=== PATIENT | female | born 1945 | race Caucasian/White ===

== ENCOUNTER 2017-06-17 08:57 | Inpatient (IN) ==
--- NOTE | 2017-06-17 08:14 | Discharge Summary ---
<Guerline Mejia - Last Filed: 06/17/17 08:34> Date of Encounter: 06/17/17 - Discharge Diagnosis (1) Loosening of knee joint prosthesis Priority: Primary Status: Acute Qualifiers: Encounter type: initial encounter Qualified Code(s): T84.038A - Mechanical loosening of other internal prosthetic joint, initial encounter; Z96.659 - Presence of unspecified artificial knee joint (2) Status post revision of total replacement of left knee Priority: Primary Status: Acute (3) Chronic pain Priority: Secondary Status: Chronic Comments: Holding Chronic pain medication, Holding [place] 5/325 TID Qualifiers: Chronic pain type: other chronic pain Qualified Code(s): G89.29 - Other chronic pain (4) DMII (diabetes mellitus, type 2) Priority: Secondary Status: Chronic Qualifiers: Diabetes mellitus complication status: without complication Diabetes mellitus 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 insulin 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 Qualified Code(s): E11.9 - Type 2 diabetes mellitus without complications (5) HTN (hypertension) Priority: Secondary Status: Chronic Qualifiers: Hypertension type: essential hypertension Qualified Code(s): I10 - Essential (primary) hypertension (6) Obesity Priority: Secondary Status: Chronic Qualifiers: Obesity type: due to excess calories Obesity classification: unspecified obesity classification Serious obesity comorbidity presence: without serious comorbidity Qualified Code(s): E66.09 - Other obesity due to excess calories; Z68.41 - Body mass index (BMI) 40.0-44.9, adult - Discharge Medications Home Medications: Aspirin Enteric Coated [Aspirin EC] 325 mg PO DAILY #21 tablet.dr 06/17/17 [Rx] Glimepiride [Amaryl] 4 mg PO DAILY 06/17/17 [History] Losartan/Hydrochlorothiazide [Hyzaar 100-25 Tablet] 1 tab PO DAILY 06/17/17 [ History] Meloxicam 15 mg PO DAILY 06/17/17 [History] Mycophenolate Mofetil [Cellcept] 1,000 mg PO QAM 06/17/17 [History] Mycophenolate Mofetil [Cellcept] 500 mg PO QPM 06/17/17 [History] Omeprazole 20 mg PO DAILY 06/17/17 [History] OxyCODONE Immed Rel [Roxicodone 5 MG] 5 mg PO Q6HR PRN #28 tablet 06/17/17 [Rx] Potassium Chloride [Klor-Con Sprinkle] 10 meq PO TID 06/17/17 [History] clonazePAM [Clonazepam] 0.5 mg PO BID #6 tab.rapdis 06/17/17 [Rx] clonazePAM [Klonopin] 0.5 mg PO BID PRN 06/17/17 [History] metFORMIN [Glucophage] 500 mg PO BID 06/17/17 [History] Allergies/Adverse Reactions: 3 Allergy/AdvReac Type Severity Reaction Status Date / Time codeine Allergy See Verified 06/17/17 10:11 Comments tetanus and diphtheria Allergy See Verified 06/17/17 10:11 toxoids Comments Primary care physician: Isidoro Claudio MD - Patient Status Disposition: Transfer Inpatient Rehab Fac Condition: Good - Discharge Instructions Follow Up With: Isidoro Claudio MD [Primary Care Provider] - - Hospital Course Hospital course: Ms. Garcia is a 71 year old female - Time Spent with Patient Total time spent providing and/or coordinating discharge services: <Koko Simmons - Last Filed: 06/19/17 12:48> Date of Encounter: 06/19/17 Time of Encounter: 12:47 - Discharge Diagnosis (1) Morbid obesity with BMI of 40.0-44.9, adult Priority: Secondary Status: Chronic (2) Loosening of knee joint prosthesis Priority: Primary Status: Chronic Qualifiers: Encounter type: subsequent encounter Qualified Code(s): T84.038D - Mechanical loosening of other internal prosthetic joint, subsequent encounter; Z96.659 - Presence of unspecified artificial knee joint (3) DMII (diabetes mellitus, type 2) Priority: Secondary Status: Chronic Qualifiers: Diabetes mellitus complication status: without complication Diabetes mellitus mcc insulin 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 Qualified Code(s): E11.9 - Type 2 diabetes mellitus without complications (4) HTN (hypertension) Priority: Secondary Status: Chronic Qualifiers: Hypertension type: essential hypertension Qualified Code(s): I10 - Essential (primary) hypertension (5) Autoimmune disease Priority: Secondary Status: Chronic (6) Chronic pain Priority: Secondary Status: Chronic Qualifiers: Chronic pain type: other chronic pain Qualified Code(s): G89.29 - Other chronic pain (7) Status post revision of total replacement of left knee Priority: Primary Status: Acute (8) Obesity Priority: Secondary Status: Chronic Qualifiers: Obesity type: due to excess calories Obesity classification: adult class 3 (BMI >= 40) Serious obesity comorbidity presence: without serious comorbidity Body mass index: BMI 40.0-44.9 Qualified Code(s): E66.09 - Other obesity due to excess calories; Z68.41 - Body mass index (BMI) 40.0-44.9, adult (9) Acute blood loss anemia Priority: Primary Status: Acute Primary care physician: Isidoro Claudio MD - Patient Status Functional capacity at discharge: uses cane/walker Overall status at discharge: patient is progressing back to baseline - Hospital Course Hospital course: Ms. Garcia is a 71 year old female Status post revision left total knee The patient had an uneventful postoperative course. They received antibiotics and physical therapy and were discharged in stable condition. There will follow -up in the office in 2 weeks. Hemoglobin 9.6 on discharge - Time Spent with Patient Total time spent providing and/or coordinating discharge services:
--- NOTE | 2017-06-17 09:29 | History & Physical Report ---
Date of Encounter: 06/17/17 Time of Encounter: 09:29 24 Hour HP Update - Instructions Instructions: If the History and Physical is less than 30 days old and was completed prior to A.M. admission and or procedure and has NOT been updated on calendar day of procedure please complete this update prior to performing procedure. - Update Patient reports changes in Medical Condition: No Changes in examination, assessment, or condition: No Changes in Medication: No Preop tests/diagnostics Reviewed: Yes Surgery Remains Indicated: Yes Consent for Planned Operative Procedure(s) Verified: Yes - Pre-Operative Checklist Preoperative Checklist Indicated: No Prophylactic Antibiotic Ordered: Yes Is VTE Prophylaxis Indicated?: Yes
[2017-06-17] MEDS ORDERED: Vancomycin 1,500 MG in D5% in Water 250 ML IVPB ONE (09:32)
[2017-06-17] MEDS ORDERED: Ringers Solution, Lactated 1,000 ML IVC SCH ×2 (09:45→14:54)
[2017-06-17] MEDS ORDERED: Famotidine 20 MG/2 ML VIAL IVP ONE (10:00)
[2017-06-17] MEDS ORDERED: Gabapentin 300 MG CAPSULE PO ONE (10:00)
[2017-06-17] MEDS ORDERED: *HR* Midazolam HCl 2 MG/2 ML VIAL ONE (10:25)
[2017-06-17] MEDS ORDERED: *HR* Propofol 200 MG/20 ML VIAL IVP ONE ×2 (10:25→10:40)
[2017-06-17] MEDS ORDERED: *HR* FentaNYL (PF) 100 MCG/2 ML VIAL ONE (10:25)
[2017-06-17] MEDS ORDERED: Lidocaine -MPF 2% 2 ML VIAL ONE (10:25)
[2017-06-17] MEDS ORDERED: *HR* Meperidine 25 MG/ML SYRINGE IVP PRN (10:29)
[2017-06-17] MEDS ORDERED: Ondansetron 4 MG/2 ML VIAL IVP ONE (10:29)
[2017-06-17] MEDS ORDERED: *HR* Labetalol 20 MG/4 ML SYRINGE IVP PRN (10:29)
--- NOTE | 2017-06-17 10:30 | Anesthesia Evaluation PreOp ---
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 06/17/17 [Rx] OxyCODONE Immed Rel [Roxicodone 5 MG] 5 mg PO Q6HR PRN #28 tablet 06/17/17 [Rx] clonazePAM [Clonazepam] 0.5 mg PO BID #6 tab.rapdis 06/17/17 [Rx] 3 Allergy/AdvReac Type Severity Reaction Status Date / Time codeine Allergy See Verified 06/17/17 10:11 Comments tetanus and diphtheria Allergy See Verified 06/17/17 10:11 toxoids Comments - Meds/Allergy Pre-op Review Medications Reviewed: Yes Allergies Reviewed: Yes Beta Blockers on Current Med List: No Anesthesia Results - Labs Laboratory Tests 06/04/17 06/04/17 11:28 11:28 Hgb 12.1 Hct 38.4 Plt Count 260 Sodium 140 Potassium 3.8 BUN 10 Creatinine 0.70 - Imaging EKG: report reviewed (SR) Additional studies: Stress Test negative, LVEF 55% mild aortic regurge Anesthesia Exam O2 Sat Height 1.52 m Height 1.52 m Height 1.52 m Weight 104.326 kg Weight 104.326 kg Weight 104.326 kg O2 Sat by Pulse Oximetry 96 O2 Sat by Pulse Oximetry 96 Vital Signs Temp Pulse Resp BP Pulse Ox 97.8 F 75 18 157/80 96 06/17/17 09:33 06/17/17 09:33 06/17/17 09:33 06/17/17 09:33 06/17/17 09:33 Height: 5'0 Weight: 230 lbs NPO (# of Hours): MN Pain Scale: 0 - HEENT Pupil (Motor): Pupils equal, EOMI Mallampati: III Teeth: Edentulous Oral Opening: Less than or equal to 3 - 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 LOC: Oriented 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 Motor: Normal RUE, Normal LUE, Normal RLE, Normal LLE, Normal Face 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 Sensory: Normal: RUE, LUE, RLE, Face, Deficit: LLE (Paresthesia Rt knee) - Cardiac Rhythm: Regular Murmur: None JVD: No Carotid Bruit: No - Pulmonary Breath Sounds: bilateral Clear Respiratory Effort: Symmetrical Anesthesia Assess/Plan ASA Score: 3 (MO HTN DM) Modified [place] Scale for Level of Consciousness: Cooperative, oriented, and tranquil Anesthetic Plan: General, Regional Monitoring Plan: Standard Monitors Recovery Plan: PACU (Discussed GA and RA, agrees to proceed)
[2017-06-17] MEDS ORDERED: ROPIVACAINE HCL/PF 0.5% 30 ML VIAL ONE (11:34)
[2017-06-17] MEDS ORDERED: Tetracaine/PF 20 MG/2 ML AMPUL ONE (11:34)
[2017-06-17] MEDS ORDERED: Bupivacaine/Clonidine Syringe 1 EACH SYRINGE ONE (11:35)
--- NOTE | 2017-06-17 12:12 | Anesthesia Procedures ---
Date of Encounter: 06/17/17 Time of Encounter: 10:25 Procedures: Anesthesia - Nerve Block Procedure Date: 06/17/17 Time: 11:50 Pre-op Diagnosis: Loosening Aseptic Left Knee Arthroplasty Surgical Procedure: REvision TKA Checklist: Correct Patient Identifier Correct side: Left Blood Thinner: No Monitor Applied: EKG, BP, Pulse Oximetry Supplemental Oxygen via Nasal Cannula (L/min): 2 Sedation: Versed (mg): 2 Sedation: Fentanyl (mcg): 100 Indication: Post Op Analgesia Pre-op Neuro Deficits: Yes (Left Knee) Block Type: Femoral, Other (IPACK) Catheter placed: No Depth at skin (cm): 4 Sterile Technique: Yes Ultrasound used: Yes Anatomy identified: Yes Visual spread of Local: Yes Neuro Stimulation: Yes Nerve Stimulator Range: >0.4 - 0.6 mA Blood on Needle Aspiration: No Smooth Injection of Local: Yes Pain with Injection of Local: No Prep: Chlorhexadine Needle: 22 x 50 mm Stimuplex Local: 0.25% Bupivicaine w/Clonidine 20 mcg/cc, Tetracaine, Ropivacaine (0.5%) Volume (cc): 30 Number of Attempts: 1 Complications: None/effective block Vitals: Vital Signs/O2 Sat/Glucose, Most Current Temp Pulse Resp BP Pulse Ox 06/17/17 11:56 69 16 165/95 99 06/17/17 11:25 78 174/110 98 06/17/17 09:56 97.8 F 75 18 157/80 96 06/17/17 09:33 97.8 F 75 18 157/80 96
[2017-06-17] MEDS ORDERED: Dexamethasone 4 MG/ML VIAL ONE (12:34)
[2017-06-17] MEDS ORDERED: *HR* Succinylcholine 200 MG/10 ML VIAL IVP ONE (12:34)
[2017-06-17] MEDS ORDERED: Ondansetron 4 MG/2 ML VIAL ONE (12:34)
[2017-06-17] MEDS ORDERED: *HR* HYDROmorphone 2 MG/ML SYRINGE ONE (12:41)
[2017-06-17] MEDS ORDERED: Lidocaine -MPF 4% 5 ML AMPUL ONE (12:42)
--- NOTE | 2017-06-17 13:05 | Orthopedic Operative Note ---
Date of procedure: 06/17/17 Pre-op diagnosis: Aseptic loosening left total knee Post-op diagnosis: same Procedure: Procedure: Left revision total knee Estimated blood loss: 400 Hardware: Metal and polyethylene replacement. Biomet SSK femur: 60, 16 x 80 stem Tibia: 63, 10 x 40 stem Constrained Darlyn: 16 constrained Darlyn, 37 patella Exam Under anesthesia: Significant mid flexion varus valgus instability Procedural Notes: Gross loosening femoral component until component. Operative procedure: The patient was brought to the operating room and placed on the operating room table. After general anesthesia was administered the operative knee was examined. Findings were noted in the exam under anesthesia. The operative extremity was prepped and draped in sterile surgical fashion. The patient received IV antibiotics prior to skin incision. A standard midline incision was made centered over the patella through the old incision. The incision was made through the skin and subcutaneous tissue. A medial parapatellar tendon approach was performed. Care was taken to preserve tissue along the medial aspect of the patella. And to protect the patella tendon. The deep MCL was released off the medial tibia. The infra patella fat pad was excised. Fluid was encountered this was normal joint fluid, Cultures were obtained and gram . The knee was brought into flexion the poly-was removed. The interface between the patient's femoral component and distal femur were disrupted with a osteotome and oscillating saw. Femoral component was removed removed without significant bone loss. Femoral component was grossly loose. Attention was then turned to the tibial component. The same technique was used to remove the tibial component by disrupting the interface between the patient's tibial component and the patients proximal tibia. The tibial component was loose, was removed without significant bone loss. The tibia was sized to a 60 was reamed up to a 16 x 80 Trial had good fit and fixation. The femur was sized to a 63, was reamed up to a 10 x 40 The finishing guide was seated and the box cut was made. The trial had good fit and fixation. Both trial components were seated and the 16 constrained Darlyn was seated and secured. The knee had full flexion and full extension with no instability. Patella was an inset patella was everted and cut below the implant. Patella sized to a 37 guide was seated locals drilled. Patella trial had excellent patella tracking. The trial components were removed. The knee sat for 2 minutes with a Betadine saline solution. It was irrigated out with 2 L of pulse irrigation. The components were assembled on the back table, the tibia cemented first followed by the femur. The 16 constrained liner was seated and secure. The knee was brought to full extension while the cement hardened. The patella was cemented and held in place with patellar holding clamp. After the cement hardened the knee was irrigated out again. The knee was closed by the PA. The extensor mechanism was closed with a running #2 Fiberwire suture and a running #2 PDS suture. The deep tissue was irrigated and closed deep with #1 PDS suture superficially with 0 PDS suture. The skin was closed with skin kimberley. The patient was placed in a sterile dressing and postoperative brace. They were extubated and transferred to recovery room in stable condition. Anesthesia: JACQUELINE Surgeon: Koko Simmons Professional Bondsman: Kathy Stanley Condition: stable Disposition: PACU
[2017-06-17] MEDS: *HR* HYDROmorphone (PF) 1 MG/ML SYRINGE IVP PRN ×2 (14:03→14:08)
[2017-06-17] MEDS ORDERED: *HR* HYDROmorphone (PF) 1 MG/ML SYRINGE ONE (14:03)
[2017-06-17 14:09] LABS: Hematocrit 34.5 % (35.3-44.9); Hemoglobin 11.3 g/dL (11.5-15.4)
--- NOTE | 2017-06-17 14:50 | Anesthesia Evaluation Post Op ---
Date of Encounter: 06/17/17 Time of Encounter: 15:00 - Vital Signs Vital Signs: Vital Signs/O2 Sat/Glucose, Most Current Temp Pulse Resp BP Pulse Ox 06/17/17 14:38 97.2 F L 61 14 124/67 97 06/17/17 14:28 76 16 123/66 94 06/17/17 14:18 97.2 F L 79 16 121/68 96 06/17/17 14:08 69 14 120/78 94 06/17/17 13:58 66 16 124/65 100 06/17/17 13:48 97.4 F L 75 12 135/70 100 06/17/17 11:56 69 16 165/95 99 06/17/17 11:25 78 174/110 98 - Lungs Lungs: Clear Ascult./Percussion - Airway Airway: Non-obstructed - Cardiovascular Regular Rate - Mental Status Mental Status: Alert & Oriented, Answers Appropriately - Pain Pain Scale: 2 - Nausea Vomiting Nausea Vomiting: Not Present - Hydration Hydration: Ice chips - Discharge PostOp Status: Transfer Patient to floor
[2017-06-17] MEDS ORDERED: Ondansetron 4 MG/2 ML VIAL IVP PRN (14:54)
[2017-06-17] MEDS ORDERED: *HR* Dextrose 50 % in Water (Syg) 50 ML SYRINGE IVP PRN (14:54)
[2017-06-17] MEDS ORDERED: D5% in Water 1,000 ML IVC PRN (14:54)
[2017-06-17] MEDS ORDERED: *HR* OxyCODONE Immed Rel 5 MG TABLET PO PRN (14:54)
[2017-06-17] MEDS ORDERED: *HR* HYDROmorphone (PF) 1 MG/ML SYRINGE IVP PRN (14:54)
[2017-06-17] MEDS ORDERED: Dextrose Gel 15 GM PO PRN ×2 (14:54)
[2017-06-17] MEDS ORDERED: Naloxone 0.4 MG/ML INJ IVP PRN (14:54)
--- NOTE | 2017-06-17 14:54 | Physician Discharge Referral ---
<MejiaankitaLisa rhodesGuerline L - Last Filed: 06/17/17 14:52> ExtendedCare Referral Info Transfer To: [facility] Provider in Charge: Provider in Charge after Transfer: PCP Institutional Level of Care: Skilled - Diagnosis (1) Loosening of knee joint prosthesis Priority: Primary Status: Chronic (2) Status post revision of total replacement of left knee Priority: Primary Status: Acute (3) Chronic pain Priority: Secondary Status: Chronic (4) DMII (diabetes mellitus, type 2) Priority: Secondary Status: Chronic (5) HTN (hypertension) Priority: Secondary Status: Chronic (6) Obesity Status: Chronic Expected Duration of Placement: < 30 days Prognosis: Good Aware of Diagnosis: Patient Aware of Prognosis: Patient - Transfer Medications Home Medications: Aspirin Enteric Coated [Aspirin EC] 325 mg PO DAILY #21 tablet. 06/17/17 [Rx] Glimepiride [Amaryl] 4 mg PO DAILY 06/17/17 [History] Losartan/Hydrochlorothiazide [Hyzaar 100-25 Tablet] 1 tab PO DAILY 06/17/17 [ History] Meloxicam 15 mg PO DAILY 06/17/17 [History] Mycophenolate Mofetil [Cellcept] 1,000 mg PO QAM 06/17/17 [History] Mycophenolate Mofetil [Cellcept] 500 mg PO QPM 06/17/17 [History] Omeprazole 20 mg PO DAILY 06/17/17 [History] OxyCODONE Immed Rel [Roxicodone 5 MG] 5 mg PO Q6HR PRN #28 tablet 06/17/17 [Rx] Potassium Chloride [Klor-Con Sprinkle] 10 meq PO TID 06/17/17 [History] clonazePAM [Clonazepam] 0.5 mg PO BID #6 tab.rapdis 06/17/17 [Rx] clonazePAM [Klonopin] 0.5 mg PO BID PRN 06/17/17 [History] metFORMIN [Glucophage] 500 mg PO BID 06/17/17 [History] Allergies/Adverse Reactions: 3 Allergy/AdvReac Type Severity Reaction Status Date / Time codeine Allergy See Verified 06/17/17 10:11 Comments tetanus and diphtheria Allergy See Verified 06/17/17 10:11 toxoids Comments - Respiratory Orders None Smoking Cessation: Smoking cessation has been advised. For more information, call the [place] Tobacco Quit Line at 7-061-AUXX-NOW. - Ancillary Orders May use pressure relief devices daily prn, May go on OSVALDO w/family/respon alliance party w /meds at nurse discretion PRN, May consult with Dentist, Sol[place], Email Developer PRN - Mobility Orders Chair, Ambulate - Rehabiliation Orders Rehab Potential: Good Rehab Orders: ROM Exercises, Evaluation for Physical Therapy, Evaluation for Occupational Therapy Other: Opsite dressing, leave intact until first post-operative visit. If dressing becomes >50% saturated, contact office, remove dressing and place appropriate dressing in its place. Do not allow for dressing to get wet. [place] in place. Plan to be removed at POW#2 PT: Precautions x 6 weeks Apply cold therapy wrap 3-6x/day for 20 minutes at a time. Encourage ambulation throughout the day and incentive spirometer 10x/hour. Elevate affected extremity above heart as tolerated. Brace: Immobilizer at night x 2 weeks. - Treatments Skin tear care topically daily PRN per policy CERTIFICATION: I certify that the transfer of the above named patient to an Extended Care Facility is necessary for the continuing treatment of the diagnosis listed. The above information is true and accurate reflection of patient's current condition. Confidential - Redisclosure prohibited without a patient's written consent. <Koko Simmons - Last Filed: 06/19/17 12:49> - Diagnosis (1) Morbid obesity with BMI of 40.0-44.9, adult Status: Chronic (2) Loosening of knee joint prosthesis Status: Chronic (3) DMII (diabetes mellitus, type 2) Status: Chronic (4) HTN (hypertension) Status: Chronic (5) Autoimmune disease Status: Chronic (6) Chronic pain Status: Chronic (7) Status post revision of total replacement of left knee Status: Acute (8) Obesity Status: Chronic (9) Acute blood loss anemia Status: Acute - Respiratory Orders Smoking Cessation: Smoking cessation has been advised. For more information, call the [place] Tobacco Quit Line at 4-247-GCUI-NOW. CERTIFICATION: I certify that the transfer of the above named patient to an Extended Care Facility is necessary for the continuing treatment of the diagnosis listed. The above information is true and accurate reflection of patient's current condition. Confidential - Redisclosure prohibited without a patient's written consent.
[2017-06-17] MEDS: Insulin LISPRO 300 UNITS/3 ML VIAL SQ SCH ×3 (15:52→21:52)
[2017-06-17] MEDS: *HR* OxyCODONE Immed Rel 5 MG TABLET PO PRN ×2 (15:58→22:28)
[2017-06-17] MEDS: ceFAZolin 2,000 MG in D5% in Water 100 ML IVPB SCH ×2 (15:58→23:04)
[2017-06-17] MEDS: *HR* Enoxaparin 30 MG/0.3 ML SYRINGE SQ SCH (16:44)
[2017-06-17] MEDS ORDERED: *HR* Enoxaparin 30 MG/0.3 ML SYRINGE SQ SCH (18:00)
[2017-06-17] MEDS: *HR* Metformin 500 MG TABLET PO SCH (20:14)
[2017-06-17] MEDS ORDERED: Sennosides 8.6 MG TABLET PO PRN (21:00)
[2017-06-17] MEDS ORDERED: Temazepam 15 MG CAPSULE PO PRN (21:00)
[2017-06-17] MEDS ORDERED: MOM Conc 10 ML UD.LIQ PO PRN (21:00)
[2017-06-17] MEDS ORDERED: clonazePAM 0.5 MG TABLET PO PRN (21:00)
[2017-06-18] MEDS: *HR* Enoxaparin 30 MG/0.3 ML SYRINGE SQ SCH ×2 (05:07→17:43)
[2017-06-18] MEDS: *HR* OxyCODONE Immed Rel 5 MG TABLET PO PRN ×5 (05:07→23:06)
--- NOTE | 2017-06-18 06:41 | Orthopedics Progress Note ---
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 insulin use status Qualified Code(s): E11.9 - Type 2 diabetes mellitus without complications (4) HTN (hypertension) Current Visit: No Status: Chronic Qualifiers: Hypertension type: essential hypertension Qualified Code(s): I10 - Essential (primary) hypertension (5) Autoimmune disease Current Visit: No Status: Chronic (6) Chronic pain Current Visit: No Status: Chronic Qualifiers: Chronic pain type: other chronic pain Qualified Code(s): G89.29 - Other chronic pain (7) Status post revision of total replacement of left knee Current Visit: No Status: Acute (8) Obesity Current Visit: No Status: Chronic Qualifiers: Obesity type: due to excess calories Obesity classification: adult class 3 (BMI >= 40) Serious obesity comorbidity presence: without serious comorbidity Body mass index: BMI 40.0-44.9 Qualified Code(s): E66.09 - Other obesity due to excess calories; Z68.41 - Body mass index (BMI) 40.0-44.9, adult Subjective Interval history: Patient was seen this morning doing well without complaints. Afebrile vital signs stable. Operative extremity: Neurovascularly intact Dressing clean dry and intact Calves nontender Assessment and plan: Continue with postoperative care Hematocrit 35 Objective Vital signs: Vital Signs Temp Pulse Resp BP Pulse Ox 06/17/17 22:21 97.7 F 63 16 133/80 95 06/17/17 17:49 97.4 F L 67 18 115/57 93 06/17/17 16:50 97.4 F L 57 13 128/74 95 06/17/17 15:50 97.4 F L 65 14 114/69 94 06/17/17 15:20 97.4 F L 68 14 97/62 96 09/25/17 14:49 97.6 F 80 18 101/62 93 06/17/17 14:38 97.2 F L 61 14 124/67 97 06/17/17 14:28 76 16 123/66 94 06/17/17 14:18 97.2 F L 79 16 121/68 96 06/17/17 14:08 69 14 120/78 94 06/17/17 13:58 66 16 124/65 100 06/17/17 13:48 97.4 F L 75 12 135/70 100 06/17/17 11:56 69 16 165/95 99 06/17/17 11:25 78 174/110 98 06/17/17 09:56 97.8 F 75 18 157/80 96 06/17/17 09:33 97.8 F 75 18 157/80 96 Intake and Output 06/17/17 06/17/17 06/18/17 15:59 23:59 07:59 Intake Total 200 / 200 100 / 100 Output Total 400 / 400 300 / 300 Balance -400 / -400 -100 / -100 100 / 100 Intake: IV Fluids 100 / 100 100 / 100 Ancef 2,000 MG In Dextrose 5% 100 / 100 100 / 100 100 ML @ 200 mls/hr IVPB Q8HR [facility] Rx#:[id number] Oral 100 / 100 Output: Urine 300 / 300 Estimated Blood Loss 400 / 400 Other: # Voids 1 Weight 104.326 kg Blood Glucose* 192 253 - Labs CBC & BMP: 06/17/17 14:00 Labs: Abnormal lab results Hgb 11.3 g/dL (11.5-15.4) L 06/17/17 14:00 Hct 34.5 % (35.3-44.9) L 06/17/17 14:00 POC Glucose 253 (58-89) H 06/17/17 19:48 - VTE Documentation of Mechanical Device: Venous foot pump, device Consult Discharge Plan - Plan Referrals: Isidoro Claudio MD [Primary Care Provider] -
[2017-06-18 06:49] LABS: Hemoglobin 9.8 g/dL (11.5-15.4)
[2017-06-18 06:53] LABS: BUN/Creatinine Ratio 16 (6-26); Blood Urea Nitrogen 12 mg/dL (7-20); Calcium 8.7 mg/dL (8.6-10.8); Carbon Dioxide 27 mEq/L (19-29); Chloride 103 mEq/L (98-109); Glucose 224 mg/dL (70-99); Osmolality,Calculated 293 (280-300); Potassium 4.1 mEq/L (3.5-4.5); Sodium 138 mEq/L (136-145); eGFR For African Americans > 60 (> 60); eGFR For Non-African Americans > 60 (> 60)
[2017-06-18] MEDS: *HR* Metformin 500 MG TABLET PO SCH ×2 (09:25→21:01)
[2017-06-18] MEDS: *HR* Glimepiride 4 MG TABLET PO SCH (09:26)
[2017-06-18] MEDS: Losartan/HCTZ 50-12.5 TABLET PO SCH (09:26)
[2017-06-18] MEDS: Insulin LISPRO 300 UNITS/3 ML VIAL SQ SCH ×4 (09:27→21:07)
--- NOTE | 2017-06-18 12:06 | Event Note ---
Date of Encounter: 06/18/17 Time of Encounter: 12:03 PCR - Left TKR -Revision 06/18/17 - +MSSA swab Cultures: pending, Gram stain negative POD#.1 Patient seen at bedside. Comorbidities: DMII, HTN, Obesity, Chronic pain Labs: 06/18 - h/h - Type and cross, holding 2 units in case drops Pain control: Chronic pain - [place] 5/325 QID - Holding Clonazapam .5 BID - printed for ECF RX Participating in PT. All questions and concerns addressed. Educated on use of incentive spirometer, ambulation, and hydration. Patient educated on post-operative restrictions and care. Addressed: see above D/C plan:. ECF
[2017-06-19] MEDS: *HR* OxyCODONE Immed Rel 5 MG TABLET PO PRN ×4 (03:36→15:32)
[2017-06-19 06:12] LABS: Hematocrit 29.5 % (35.3-44.9); Hemoglobin 9.6 g/dL (11.5-15.4)
[2017-06-19 06:24] LABS: BUN/Creatinine Ratio 17 (6-26); Blood Urea Nitrogen 11 mg/dL (7-20); Carbon Dioxide 31 mEq/L (19-29); Chloride 103 mEq/L (98-109); Glucose 156 mg/dL (70-99); Osmolality,Calculated 295 (280-300); Potassium 3.6 mEq/L (3.5-4.5); Sodium 141 mEq/L (136-145); eGFR For African Americans > 60 (> 60); eGFR For Non-African Americans > 60 (> 60)
[2017-06-19] MEDS: *HR* Enoxaparin 30 MG/0.3 ML SYRINGE SQ SCH (06:31)
[2017-06-19] MEDS: *HR* Metformin 500 MG TABLET PO SCH (07:44)
[2017-06-19] MEDS: Losartan/HCTZ 50-12.5 TABLET PO SCH (07:45)
[2017-06-19] MEDS: *HR* Glimepiride 4 MG TABLET PO SCH (07:45)
[2017-06-19] MEDS: Insulin LISPRO 300 UNITS/3 ML VIAL SQ SCH ×2 (08:06→11:49)
[2017-06-19 11:25] VITALS: BP 107/65
--- NOTE | 2017-06-19 12:49 | Orthopedics Progress Note ---
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: unspecified longterm insulin use status Qualified Code(s): E11.9 - Type 2 diabetes mellitus without complications (4) HTN (hypertension) Current Visit: No Status: Chronic Qualifiers: Hypertension type: essential hypertension Qualified Code(s): I10 - Essential (primary) hypertension (5) Autoimmune disease Current Visit: No Status: Chronic (6) Chronic pain Current Visit: No Status: Chronic Qualifiers: Chronic pain type: other chronic pain Qualified Code(s): G89.29 - Other chronic pain (7) Status post revision of total replacement of left knee Current Visit: No Status: Acute (8) Obesity Current Visit: No Status: Chronic Qualifiers: Obesity type: due to excess calories Obesity classification: adult class 3 (BMI >= 40) Serious obesity comorbidity presence: without serious comorbidity Body mass index: BMI 40.0-44.9 Qualified Code(s): E66.09 - Other obesity due to excess calories; Z68.41 - Body mass index (BMI) 40.0-44.9, adult (9) Acute blood loss anemia Current Visit: Yes Status: Acute Subjective Interval history: Patient was seen this morning doing well without complaints. Afebrile vital signs stable. Operative extremity: Neurovascularly intact Dressing clean dry and intact Calves nontender Assessment and plan: Continue with postoperative care hemoGlobin 9.6 discharged today Objective Vital signs: Vital Signs Temp Pulse Resp BP Pulse Ox 06/19/17 11:45 88 20 107/65 98 06/19/17 11:22 98.4 F 88 20 107/65 98 06/19/17 07:10 98.6 F 100 18 131/72 99 06/19/17 04:07 98.5 F 84 18 125/67 98 06/18/17 23:21 97.9 F 90 18 124/65 99 06/18/17 21:08 97.9 F 79 18 125/71 98 06/18/17 15:24 97.4 F L 76 16 133/73 96 Intake and Output 06/18/17 06/19/17 06/19/17 23:59 07:59 15:59 Intake Total 200 / 200 100 / 100 100 / 100 Output Total 0 / 0 550 / 550 Balance 200 / 200 -450 / -450 100 / 100 Intake: Oral 200 / 200 100 / 100 100 / 100 Output: Urine 0 / 0 550 / 550 Other: Meal Breakfast Percent of Meal Consumed 25% # Voids 1 Weight 106.4 kg Blood Glucose* 180 164 189 Patient Weight 06/19/17 23:59 Weight 106.4 kg - Labs CBC & BMP: 06/19/17 05:26 06/19/17 05:26 Labs: Abnormal lab results Hgb 9.6 g/dL (11.5-15.4) L 06/19/17 05:26 Hct 29.5 % (35.3-44.9) L 06/19/17 05:26 Carbon Dioxide 31 mEq/L (19-29) H 06/19/17 05:26 Glucose 156 mg/dL (70-99) H 06/19/17 05:26 POC Glucose 180 (58-89) H 06/18/17 20:55 - VTE Documentation of Mechanical Device: Venous foot pump, device Consult Discharge Plan - Plan Referrals: Isidoro Claudio MD [Primary Care Provider] -
== END 2017-06-19 15:34 | DRG 467 ==
LOC: SAMDAY 08:57 → 3NENU 14:43
PROVIDERS: ADMIT Orthopaedic Surgery; ATTEND Orthopaedic Surgery